=== PATIENT | female | born 1950 | race Caucasian/White ===

== ENCOUNTER 2016-11-04 21:07 | Emergency (ER) | payer BC ==
--- NOTE | ~2016-11-04 | ER ---
PATIENT'S NAME: ANALIA [facility] AGE: 66 Y [address] ROOM: [place] [address] LOCATION: ED ADMIT DATE: 11/04/2016 ER/Outpatient Report DISCHARGE DATE: 11/04/2016 FAMILY PHYSICIAN: , Unknown ATTENDING PHYSICIAN: Anna Redd Time of Arrival: 2107 hours. Time of Evaluation: 2107 hours. CHIEF COMPLAINT: Allergic reaction. HISTORY OF PRESENT ILLNESS: The patient states she started feeling some swelling of her eyes and congestion of her nose about 2 hours ago. She did take some Benadryl at 8:30, she took one tablet 25 mg, not feel as though it helped and the swelling worsened. She is not sure what is possibly could be allergic to. States that she has similar episode back in December of 2015 when she was living down in the [place]. She did not eat any different food than she has had in the past. She denies having any pain, has not had any trouble breathing. States her nose is clogged. Otherwise, she is not really having any trouble breathing. Her eyes are swollen. No swelling of her tongue or lips. ALLERGIES: NO KNOWN ALLERGIES. CURRENT MEDICATIONS: Benadryl that she took. PAST MEDICAL HISTORY: Benign. PAST SURGICAL HISTORY: Negative. SOCIAL HISTORY: She denies the use of tobacco, drugs, or alcohol. REVIEW OF SYSTEMS: Negative other than those mentioned in the HPI. PHYSICAL EXAMINATION: VITAL SIGNS: Her blood pressure initially is 195/98, pulse of 85, respirations 20, temperature of 98, O2 saturation is 95% on room air. GENERAL: She is awake, alert, and oriented x4. PATIENT'S NAME: ANALIA [facility] AGE: 66 Y [address] ROOM: [place], [place] [address] LOCATION: ED ADMIT DATE: 11/04/2016 ER/Outpatient Report DISCHARGE DATE: 11/04/2016 FAMILY PHYSICIAN: Physician, Unknown ATTENDING PHYSICIAN: Anna Redd SKIN: [place], warm, and dry. RESPIRATIONS: Even and nonlabored. HEENT: Eye lids are swollen, upper and lower lids. Nasal is congested. Oropharynx is clear. NECK: Supple. No lymphadenopathy. LUNGS: Lung sounds are clear throughout. HEART: Regular rate and rhythm. EMERGENCY DEPARTMENT COURSE: Saline lock was initiated. The patient was given epinephrine 1:1000 of 0.3 mg subcu and Solu-Medrol 125 mg IV. Her vital signs were monitored. Her O2 sats remained above 95% here in the ER. She did feel as though her swelling of eyes was improving. She was able to open her left eye more and had good vision. Her blood pressure did come down, last was 167/77. IMPRESSION: Allergic reaction. PLAN: Home, rest, fluids. Did discuss taking Benadryl every 6 hours as needed. If symptoms worsen, she is to return to the ER or follow up with her primary provider. She verbalized understanding. THAO HENSON APRN FOR MD YADIEL MONROE/stephen /[id number] d: 11/04/16 2313 t: 11/08/16 1537, OUTPATIENT REPORT
== END 2016-11-04 22:04 | disposition disaster alternative care site (69) ==
LOC: GMED 21:07
DX: T78.40XA Allergy, unspecified, initial encounter (principal)
CPT/HCPCS: J0171; J2930